=== PATIENT | female | born 1955 | race Caucasian/White ===

== ENCOUNTER 2022-12-17 07:12 | Day surgery (SDC) | payer OTHER ==
[~2022-12-17] VITALS: Ht 170.2 cm; Wt 52.2 kg
[2022-12-17] MEDS ORDERED: PROPOFOL 200MG/ 20ML VIAL (DIPRIVAN) IV ONE (09:19)
[2022-12-17] MEDS ORDERED: NS 1000 ML IV.SOLN IV ONE (09:19)
[2022-12-17 16:04] VITALS: BP_SYST 146; PULSE 78; RESP 20; TEMP 98.2; O2SAT 99
== END 2022-12-17 11:10 | disposition home or self-care (01) ==
LOC: SDS 07:12 → SMU 07:15 → SDS 11:10
PROVIDERS: ATTEND Internal Medicine
DX: K30 Functional dyspepsia (principal); K29.50 Unspecified chronic gastritis without bleeding; Z88.0 Allergy status to penicillin; Z88.5 Allergy status to narcotic agent; K21.9 Gastro-esophageal reflux disease without esophagitis; K44.9 Diaphragmatic hernia without obstruction or gangrene; K58.9 Irritable bowel syndrome, unspecified; Z79.899 Other long term (current) drug therapy
CPT/HCPCS: 43239; 88305; 88312; 88313; G0378; J2704; J7030